=== PATIENT | female | born 1950 | race Caucasian/White ===

== ENCOUNTER → 2023-10-18 06:49 | Outpatient (REF) | payer MEDICARE, SELFPAY | LOC: PAVMRI 06:49 | PROVIDERS: ATTENDING PHYSICIAN Internal Medicine | DX: M54.12 Radiculopathy, cervical region (principal); M54.16 Radiculopathy, lumbar region | CPT/HCPCS: 72141; 72148 ==

== ENCOUNTER → 2023-10-23 07:56 | Outpatient (REF) | payer MEDICARE, SELFPAY | LOC: PAVMRI 07:56 | PROVIDERS: ATTENDING PHYSICIAN Internal Medicine | DX: G83.4 Cauda equina syndrome (principal); R91.1 Solitary pulmonary nodule; H53.8 Other visual disturbances | CPT/HCPCS: 70553; 72157; A9575 ==

== ENCOUNTER → 2023-11-10 15:05 | Outpatient (REF) | payer MEDICARE, SELFPAY | LOC: HWRAD 15:05 | PROVIDERS: ATTENDING PHYSICIAN Allergy & Immunology; FAMILY PHYSICIAN Internal Medicine | DX: J45.998 Other asthma (principal); R05.1 Acute cough; R06.02 Shortness of breath | CPT/HCPCS: 71046 ==

== ENCOUNTER → 2024-02-08 13:40 | Outpatient (REF) | payer MEDICARE, SELFPAY | LOC: RAD 13:40 | PROVIDERS: ATTENDING PHYSICIAN Internal Medicine | DX: R10.84 Generalized abdominal pain (principal); N28.1 Cyst of kidney, acquired | CPT/HCPCS: 74178; Q9967 ==

== ENCOUNTER → 2024-05-14 14:11 | Outpatient (REF) | payer MEDICARE, SELFPAY | LOC: PAVMRI 14:11 | PROVIDERS: ATTENDING PHYSICIAN Neurological Surgery | DX: D33.4 Benign neoplasm of spinal cord (principal) | CPT/HCPCS: 72157; A9575 ==

== ENCOUNTER → 2024-06-20 20:03 | Outpatient (REF) | payer MEDICARE, SELFPAY | LOC: MRI 20:03 | PROVIDERS: ATTENDING PHYSICIAN Ophthalmology Neuro-ophthalmology | DX: H53.9 Unspecified visual disturbance (principal) | CPT/HCPCS: 70543; 70553; A9575 ==

== ENCOUNTER → 2025-03-15 16:34 | Outpatient (REF) | payer MEDICARE, SELFPAY | LOC: RAD 16:34 | PROVIDERS: ATTENDING PHYSICIAN Specialist; FAMILY PHYSICIAN Internal Medicine | DX: N28.89 Other specified disorders of kidney and ureter (principal) | CPT/HCPCS: 74170; Q9967 ==